=== PATIENT | male | born 1940 | race Two or more races ===

== ENCOUNTER 2018-02-28 15:01 | Inpatient (IN) | payer OTHER ==
[~2018-02-28] VITALS: Ht 188 cm; Wt 93.5 kg
[2018-02-28] MEDS ORDERED: SODIUM CHLORIDE 0.9% 1,000 ML IV ONE (15:15)
[2018-02-28] MEDS ORDERED: SODIUM CHLORIDE 0.9% 1,000ML IVBOLUS ONE (15:30)
[2018-02-28 15:43] LABS: BASOPHILS # (AUTO) 0.03 x10^3/uL (0-0.1); BASOPHILS % (AUTO) 0 % (0-1); EOSINOPHILS # (AUTO) 0.06 x10^3/uL (0-0.4); EOSINOPHILS % (AUTO) 1 % (1-7); LYMPHOCYTES # (AUTO) 2.01 x10^3/uL (1-3.4); LYMPHOCYTES % (AUTO) 23 % (22-44); MD NO; MEAN CORPUSCULAR HGB CONC 34.1 g/dL (33.2-36.2); MEAN CORPUSCULAR VOLUME 96.7 fL (81-97); MEAN PLATELET VOLUME 8.7 fL (7.4-10.4); MONOCYTES # (AUTO) 0.34 x10^3/uL (0.2-0.8); MONOCYTES % (AUTO) 4 % (2-9); NEUTROPHILS # (AUTO) 6.21 x10^3/uL (1.8-6.8); NEUTROPHILS % (AUTO) 72 % (42-75); PLATELET COUNT 172 x10^3/uL (130-400); RED BLOOD COUNT 4.69 x10^6/uL (4.38-5.82); RED CELL DISTRIBUTION WIDTH 14.4 % (9.4-14.8)
[2018-02-28 15:56] LABS: ALANINE AMINOTRANSFERASE 25 U/L (12-78); ALBUMIN 3.8 g/dL (3.4-5.0); ANION GAP 10 mmol/L (5-15); CALCIUM 8.4 mg/dL (8.5-10.1); CHLORIDE 107 mmol/L (98-107); CREATININE 1.06 mg/dL (0.7-1.3)
[2018-02-28 16:00] LABS: ALKALINE PHOSPHATASE 115 U/L (45-117); BILIRUBIN,TOTAL 0.6 mg/dL (0.2-1.0); TOTAL PROTEIN 7.6 g/dL (6.4-8.2); TROPONIN I < 0.015 ng/mL (0.000-0.045)
[2018-02-28 16:11] LABS: INTERNATIONAL NORMALIZED RATIO 1.01 (0.93-1.1); PROTHROMBIN TIME 10.7 Seconds (9.6-11.5)
[2018-02-28 17:19] LABS: CULTURE INDICATED? YES; MICROSCOPIC AUTO
[2018-02-28] MEDS ORDERED: TAMS0.4C2 PO (17:28)
[2018-02-28] MEDS ORDERED: GABA300C10 PO (17:28)
[2018-02-28] MEDS ORDERED: LISI-167 PO ×2 (17:28)
[2018-02-28] MEDS ORDERED: TRAM50TA2 PO (17:28)
[2018-02-28] MEDS ORDERED: ATOR-2 PO (17:28)
[2018-02-28] MEDS ORDERED: AMLO10TA6 PO (17:28)
[2018-02-28] MEDS ORDERED: METF500T17 PO (17:28)
[2018-02-28] MEDS ORDERED: SODIUM CHLORIDE FLUSH 10ML SYR IVF PRN (17:30)
[2018-02-28] MEDS ORDERED: CEFTRIAXONE 1,000 MG in SODIUM CHLORIDE 0.9% 50 ML IVPB ONE (17:30)
[2018-02-28] MEDS ORDERED: CEFTRIAXONE PMX 1GM/50ML 50 ML ONE (17:41)
[2018-02-28] MEDS ORDERED: ONDANSETRON ODT 4 MG PO PRN (18:00)
[2018-02-28] MEDS ORDERED: LABETALOL 5MG/ML, 20ML IVPush PRN (18:00)
[2018-02-28] MEDS ORDERED: POLYETHYLENE GLYCOL 17 GM PACKET PO PRN (18:00)
[2018-02-28] MEDS ORDERED: ONDANSETRON 2MG/ML, 2ML IVPush PRN (18:00)
[2018-02-28] MEDS ORDERED: ENOXAPARIN 40 MG/0.4 ML ONE (18:17)
[2018-02-28] MEDS: ENOXAPARIN 40 MG/0.4 ML SQ SCH (18:19)
[2018-02-28] MEDS ORDERED: CEFTRIAXONE PMX 1GM/50ML 50 ML IV ONE (19:00)
[2018-02-28] MEDS: D5%-0.45% NACL 1,000 ML IV SCH (19:40)
[2018-02-28 20:00] VITALS: BP 152/71
[2018-02-28] MEDS: LISINOPRIL 20 MG TABLET PO SCH (22:08)
[2018-02-28] MEDS: ATORVASTATIN 10 MG TABLET PO SCH (22:08)
[2018-03-01 01:33] VITALS: BP 106/69
[2018-03-01] MEDS: D5%-0.45% NACL 1,000 ML IV SCH ×3 (04:57→23:21)
[2018-03-01 06:22] LABS: BASOPHILS # (AUTO) 0.03 x10^3/uL (0-0.1); BASOPHILS % (AUTO) 0 % (0-1); EOSINOPHILS # (AUTO) 0.08 x10^3/uL (0-0.4); EOSINOPHILS % (AUTO) 1 % (1-7); LYMPHOCYTES # (AUTO) 1.83 x10^3/uL (1-3.4); LYMPHOCYTES % (AUTO) 29 % (22-44); MD NO; MEAN CORPUSCULAR HEMOGLOBIN 32.9 pg (27.5-34.5); MEAN CORPUSCULAR VOLUME 96.7 fL (81-97); MEAN PLATELET VOLUME 9.3 fL (7.4-10.4); MONOCYTES # (AUTO) 0.52 x10^3/uL (0.2-0.8); MONOCYTES % (AUTO) 8 % (2-9); NEUTROPHILS % (AUTO) 61 % (42-75); PLATELET COUNT 155 x10^3/uL (130-400); RED BLOOD COUNT 4.02 x10^6/uL (4.38-5.82)
[2018-03-01 06:28] LABS: ALBUMIN 3.3 g/dL (3.4-5.0); ANION GAP 7 mmol/L (5-15); CALCIUM 8.4 mg/dL (8.5-10.1); CHLORIDE 109 mmol/L (98-107)
[2018-03-01 06:33] LABS: ALANINE AMINOTRANSFERASE 22 U/L (12-78); ALKALINE PHOSPHATASE 92 U/L (45-117); BILIRUBIN,TOTAL 0.7 mg/dL (0.2-1.0); CREATININE 0.91 mg/dL (0.7-1.3); TOTAL PROTEIN 6.4 g/dL (6.4-8.2)
[2018-03-01 07:12] VITALS: BP 139/74
[2018-03-01] MEDS: TAMSULOSIN 0.4 MG CAP.ER.24H PO SCH (09:00)
[2018-03-01] MEDS: SENNA/DOCUSATE TABLET PO SCH (09:32)
[2018-03-01 10:03] VITALS: BP_SYST 142; BP_DIAS 74; BP_DIAS 75
[2018-03-01 13:05] VITALS: BP 129/75
[2018-03-01] MEDS: MORPHINE SULFATE 4 MG/ML, 1ML IVPush PRN ×2 (14:49→23:20)
[2018-03-01] MEDS: ENOXAPARIN 40 MG/0.4 ML SQ SCH (17:26)
[2018-03-01] MEDS ORDERED: CEFTRIAXONE PMX 2GM/50ML 50 ML IV SCH (17:30)
[2018-03-01 18:14] LABS: INTERNATIONAL NORMALIZED RATIO 1.06 (0.93-1.1); PROTHROMBIN TIME 11.2 Seconds (9.6-11.5)
[2018-03-01] MEDS ORDERED: WARFARIN 5 MG TABLET PO-COUM ONE (18:30)
[2018-03-01 18:49] VITALS: BP 140/82
[2018-03-01] MEDS: LISINOPRIL 20 MG TABLET PO SCH (20:48)
[2018-03-01] MEDS: ATORVASTATIN 10 MG TABLET PO SCH (20:48)
[2018-03-02 02:27] VITALS: BP 125/79
[2018-03-02 06:13] LABS: BASOPHILS # (AUTO) 0.05 x10^3/uL (0-0.1); BASOPHILS % (AUTO) 1 % (0-1); EOSINOPHILS # (AUTO) 0.13 x10^3/uL (0-0.4); EOSINOPHILS % (AUTO) 2 % (1-7); LYMPHOCYTES # (AUTO) 1.88 x10^3/uL (1-3.4); LYMPHOCYTES % (AUTO) 32 % (22-44); MD NO; MEAN CORPUSCULAR HGB CONC 34.1 g/dL (33.2-36.2); MEAN CORPUSCULAR VOLUME 96.6 fL (81-97); MEAN PLATELET VOLUME 8.6 fL (7.4-10.4); MONOCYTES % (AUTO) 9 % (2-9); NEUTROPHILS # (AUTO) 3.35 x10^3/uL (1.8-6.8); NEUTROPHILS % (AUTO) 57 % (42-75); PLATELET COUNT 153 x10^3/uL (130-400); RED BLOOD COUNT 4.06 x10^6/uL (4.38-5.82); RED CELL DISTRIBUTION WIDTH 13.8 % (9.4-14.8)
[2018-03-02 06:21] LABS: INTERNATIONAL NORMALIZED RATIO 1.11 (0.93-1.1); PROTHROMBIN TIME 11.7 Seconds (9.6-11.5)
[2018-03-02 06:28] LABS: CHLORIDE 111 mmol/L (98-107)
[2018-03-02 06:43] LABS: ALANINE AMINOTRANSFERASE 21 U/L (12-78); ALBUMIN 3.1 g/dL (3.4-5.0); ALKALINE PHOSPHATASE 85 U/L (45-117); ANION GAP 8 mmol/L (5-15); BILIRUBIN,TOTAL 0.5 mg/dL (0.2-1.0); CREATININE 0.99 mg/dL (0.7-1.3); FREE T4 (FREE THYROXINE) 1.23 ng/dL (0.76-1.46); TOTAL PROTEIN 6.5 g/dL (6.4-8.2)
[2018-03-02 07:02] VITALS: BP 122/71
[2018-03-02] MEDS: D5%-0.45% NACL 1,000 ML IV SCH ×2 (08:57→15:00)
[2018-03-02] MEDS: SENNA/DOCUSATE TABLET PO SCH (09:00)
[2018-03-02] MEDS: MORPHINE SULFATE 4 MG/ML, 1ML IVPush PRN (10:07)
[2018-03-02] MEDS: TAMSULOSIN 0.4 MG CAP.ER.24H PO SCH (10:07)
[2018-03-02 11:53] LABS: CLOSTRIDIUM DIFFICILE ANTIGEN NEGATIVE; CLOSTRIDIUM DIFFICILE TOXIN NEGATIVE (Negative)
[2018-03-02 12:47] VITALS: BP 144/81
[2018-03-02] MEDS ORDERED: WARF5TAB PO-COUM (14:26)
[2018-03-02] MEDS ORDERED: CARV3.1212 PO (14:28)
[2018-03-02] MEDS ORDERED: WARFARIN 5 MG TABLET PO-COUM ONE (18:00)
== END 2018-03-02 17:44 | disposition home or self-care (01) | DRG 689 ==
LOC: ED 17:26 → EDIP 17:27 → ED 18:25 → 4EST 18:35
PROVIDERS: ADMIT Hospitalist; ATTEND Hospitalist
DX: N30.90 Cystitis, unspecified without hematuria (principal); S72.001A Fracture of unspecified part of neck of right femur, initial encounter for closed fracture; J98.11 Atelectasis; E11.40 Type 2 diabetes mellitus with diabetic neuropathy, unspecified; E78.5 Hyperlipidemia, unspecified; G89.29 Other chronic pain; I10 Essential (primary) hypertension; N40.0 Benign prostatic hyperplasia without lower urinary tract symptoms; I48.91 Unspecified atrial fibrillation
CPT/HCPCS: 36415; 70450; 71045; 72192; 80053; 81001; 82140; 83605; 83735; 83880; 84100; 84145; 84439; 84443; 84484; 85025; 85379; 85610; 85730; 87040; 87077; 87086; 87186; 87324; 90656; 93005; 93306; 93970; 96365; 96375; 99285; G0378; J0696; J1650; J7030